=== PATIENT | male | born 1980 | race Caucasian/White ===

== ENCOUNTER 2018-08-06 11:25 | Emergency (ER) | payer SELFPAY ==
[~2018-08-06] VITALS: Ht 170.2 cm; Wt 104.3 kg
[2018-08-06 11:40] VITALS: BP 156/100
--- NOTE | 2018-08-06 12:08 | RAD ---
AP and Lateral Views of the Chest 08/06/2018 11:51 AM Indication: COUGH AND SOB FOR 1 WEEK Comparison: None Findings: There is no focal consolidation or infiltrate identified. The cardiomediastinal silhouette is within normal limits. There is no evidence of pneumothorax or pleural effusion. No acute osseous abnormalities are identified. Impression: No evidence of acute cardiopulmonary process. Electronically signed by: Trace Beal MD (08/06/2018 12:03 PM) [facility]
[2018-08-06] MEDS ORDERED: IPRATRPIUM/ALBUTEROL 0.5/2.5MG 3 ML NEBU. NEB ONE (12:10)
[2018-08-06] MEDS ORDERED: methylPREDNISolone SOD SUCC PF 125 MG/2 ML VIAL. IM ONE (12:10)
[2018-08-06] MEDS ORDERED: BENZONATATE 100 MG CAPSULE. PO ONE (12:10)
[2018-08-06 12:13] LABS: INFLUENZA A PATIENT NEGATIVE (NEGATIVE); INFLUENZA B PATIENT NEGATIVE (NEGATIVE)
[2018-08-06] MEDS ORDERED: PRED50TA PO (12:28)
[2018-08-06] MEDS ORDERED: SULF1TAB24 PO (12:28)
[2018-08-06] MEDS ORDERED: BENZ100C PO (12:28)
--- NOTE | 2018-08-06 12:28 | PHYS DOC ---
Past History Past Medical History: No Pertinent History Past Surgical History: No Surgical History Smoking: Cigarettes Alcohol Use: None Drug Use: None Adult General Chief Complaint Chief Complaint: SHORTNESS OF BREATH HPI HPI Patient is a 37 year old male who presents with complaining of cough and shortness of breath for one week. Patient complaining of productive cough with clear and brownish sputum for one week associated with shortness of breath, nasal congestion, sore throat, headache and body ache, generalized weakness. Patient states he took [id number] medication without improvement of his condition. Patient denies fever, vomiting, diarrhea, chest pain. Patient had sick contacts at home. Review of Systems Review of Systems Constitutional: Denies fever or chills [] Eyes: Denies change in visual acuity, redness, or eye pain [] HENT: Reports nasal congestion and sore throat Respiratory: Reports cough and shortness of breath Cardiovascular: No additional information not addressed in HPI [] GI: Denies abdominal pain, nausea, vomiting, bloody stools or diarrhea [] : Denies dysuria or hematuria [] Musculoskeletal: Denies back pain or joint pain [] Integument: Denies rash or skin lesions [] Neurologic: Denies headache, focal weakness or sensory changes [] Endocrine: Denies polyuria or polydipsia [] All other systems were reviewed and found to be within normal limits, except as documented in this note. Current Medications Current Medications Current Medications Medications (Trade) Dose Ordered Sig/Lisa Start Time Stop Time Status Last Admin Dose Admin Albuterol/ Ipratropium (Duoneb) 3 ml 1X ONCE 08/06/18 12:10 08/06/18 12:11 DC 08/06/18 12:15 3 ML Benzonatate (Tessalon Perle) 200 mg 1X ONCE 08/06/18 12:10 08/06/18 12:11 DC 08/06/18 12:19 200 MG Methylprednisolone Sodium Succinate (SOLU-Medrol 125MG VIAL) 125 mg 1X ONCE 08/06/18 12:10 08/06/18 12:11 DC 08/06/18 12:19 125 MG Allergies Allergies Allergies Coded Allergies Type Severity Reaction Last Updated Verified penicillin G Allergy Unknown 08/06/18 Yes Physical Exam Physical Exam Constitutional: Well developed, well nourished, mild distress, non-toxic appearance. [] HENT: Normocephalic, atraumatic, bilateral external ears normal, oropharynx moist, pharyngeal erythema, no oral exudates, nose normal. [] Eyes: PERRLA, EOMI, conjunctiva normal, no discharge. [] Neck: Normal range of motion, no tenderness, supple, no stridor. [] Cardiovascular:Heart rate regular rhythm, no murmur [] Lungs & Thorax: Mild respiratory distress with bilateral wheezing and intercostal retraction Abdomen: Bowel sounds normal, soft, no tenderness, no masses, no pulsatile masses. [] Skin: Warm, dry, no erythema, no rash. [] Back: No tenderness, no CVA tenderness. [] Extremities: No tenderness, no cyanosis, no clubbing, ROM intact, no edema. [] Neurologic: Alert and oriented X 3, normal motor function, normal sensory function, no focal deficits noted. [] Psychologic: Affect normal, judgement normal, mood normal. [] Current Patient Data Vital Signs Vital Signs Date Time Temp Pulse Resp B/P (MAP) Pulse Ox O2 Delivery O2 Flow Rate FiO2 08/06/18 12:16 98 Room Air 08/06/18 11:40 98.2 94 20 Lab Results Laboratory Tests Test 08/06/18 11:31 Influenza Type A (Rapid) Negative (NEGATIVE) Influenza Type B (Rapid) Negative (NEGATIVE) Group A Streptococcus Rapid Negative (NEGATIVE) EKG EKG [] Radiology/Procedures Radiology/[place] [address] IMAGING REPORT Signed PATIENT: ETHEL MCCAULEY ACCOUNT: [id number] : 1980 LOCATION: ER AGE: 37 SEX: M EXAM STATUS: REG ER ORD. PHYSICIAN: WENDY SORIANO MD REASON: cough and shortness of PROCEDURE: CHEST PA & LATERAL AP and Lateral Views of the Chest 08/06/2018 11:51 AM Indication: COUGH AND SOB FOR 1 WEEK Comparison: None Findings: There is no focal consolidation or infiltrate identified. The cardiomediastinal silhouette is within normal limits. There is no evidence of pneumothorax or pleural effusion. No acute osseous abnormalities are identified. Impression: No evidence of acute cardiopulmonary process. Electronically signed by: Trace Hadley MD (08/06/2018 12:03 PM) [facility] DICTATED AND SIGNED BY: TRACE HADLEY MD DATE: 08/06/18 1158 CC: WENDY SORIANO MD; PCP,NO ~ Course & Med Decision Making Course & Med Decision Making Pertinent Labs and Imaging studies reviewed. (See chart for details) Evaluation of patient in ER showed 37-year-old smoker patient with complaining of cough and congestion and shortness of breath for one week. Patient had negative strep and flu test and unremarkable chest x-ray. Patient treated with DuoNeb and Solu-Medrol and felt better. Plan discharge patient home with diagnosis of acute bronchitis. Dragon Disclaimer Dragon Disclaimer This electronic medical record was generated, in whole or in part, using a voice recognition dictation system. Departure Departure: Impression: Primary Impression: Acute bronchitis Additional Impressions: Tobacco abuse Tobacco abuse counseling Disposition: HOME, SELF-CARE (at 1225) Condition: IMPROVED Referrals: PCP,JIMMY (PCP) Patient Instructions: Acute Bronchitis, Cough, Adult, Smoking Cessation, Tips For Success Additional Instructions: Drink plenty of liquids Follow-up with your primary care physician in 3-5 days Return to ER if not getting better Scripts Prednisone (PREDNISONE) 50 Mg Tablet 1 TAB PO DAILY for bronchitis, #5 TAB Prov: WENDY SORIANO MD 08/06/18 Benzonatate (TESSALON PERLE) 100 Mg Capsule 1 CAP PO TID for cough, #21 CAP Prov: WENDY SORIANO MD 08/06/18 Sulfamethoxazole/Trimethoprim (BACTRIM DS TABLET) 1 Each Tablet 1 TAB PO BID for infection, #14 TAB Prov: WENDY SORIANO MD 08/06/18 Problem Qualifiers WENDY SORIANO MD Aug 06, 2018 12:28
== END 2018-08-06 12:41 | disposition home or self-care (01) ==
LOC: ER 11:25
DX: J20.9 Acute bronchitis, unspecified (principal); R51 Headache; F17.210 Nicotine dependence, cigarettes, uncomplicated; Z71.6 Tobacco abuse counseling; Z88.0 Allergy status to penicillin
CPT/HCPCS: 71046; 87070; 87804; 87880; 94640; 96372; 99284; J2930; J7620